=== PATIENT | male | born 1985 | race African-American/Black ===

== ENCOUNTER 2018-10-07 07:57 | Emergency (ER) | payer OTHER ==
[~2018-10-07] VITALS: Ht 185.4 cm; Wt 123.2 kg
[2018-10-07] MEDS ORDERED: LISINOPRIL-HCT1 EAC2 PO (08:08)
[2018-10-07] MEDS ORDERED: TOPROL XL25 MG PO (08:09)
[2018-10-07] MEDS ORDERED: WELLBUTRIN XL300 MG PO (08:09)
[2018-10-07 08:21] LABS: ABSOLUTE BASOPHILS 0.1 thou/uL (0.0-0.2); ABSOLUTE EOSINOPHILS 0.3 thou/uL (0.0-0.7); ABSOLUTE LYMPHOCYTES 2.1 thou/uL (0.8-5.3); ABSOLUTE MONOCYTES 0.4 thou/uL (0.0-1.2); ABSOLUTE NEUTROPHILS 3.4 thou/uL (1.6-8.1); BASOPHILS 0.8 %; EOSINOPHILS 4.3 %; HEMATOCRIT 48.1 % (42.0-52.0); HEMOGLOBIN 16.4 gm/dL (14.0-18.0); MCH 27.3 pg (26.0-34.0); MCHC 34.1 g/dL (28.0-37.0); MCV 80.1 fL (80.0-100.0); MONOCYTES 5.8 %; MPV 8.8 fl. (7.2-11.1); NUCLEATED RBCS 0 /100WBC; PLATELET COUNT* 229 thou/uL (150-400); POLYS 55.1 %; RDW-CV 13.9 % (10.5-14.5); WBC 6.2 thou/uL (4.0-11.0)
[2018-10-07 08:31] LABS: ANION GAP 7 mmol/L (7-16); BUN 16 mg/dL (7-18); CALCIUM 8.7 mg/dL (8.5-10.1); CHLORIDE 104 mmol/L (98-107); CO2 27 mmol/L (21-32); CREATININE 1.4 mg/dL (0.6-1.3); GLUCOSE 87 mg/dL (70-99); POTASSIUM 3.7 mmol/L (3.5-5.1); SODIUM 138 mmol/L (136-145)
[2018-10-07 08:34] LABS: APTT 21.3 Seconds (25.0-31.3); PROTIME 10.4 Seconds (9.20-11.50)
[2018-10-07 08:56] LABS: ALBUMIN 3.5 g/dL (3.4-5.0); ALKALINE PHOSPHATASE 50 U/L (46-116); CK-MB MASS 0.8 ng/mL (<0.5-3.6); LIPASE 165 U/L (73-393); MAGNESIUM 1.9 mg/dL (1.8-2.4); NT-PRO BRAIN NAT PEPTIDE 20 pg/mL (<300); SGOT 18 U/L (15-37); SGPT 31 U/L (30-65); TOTAL BILIRUBIN 0.4 mg/dL (<0.1-1.0); TOTAL PROTEIN 7.5 g/dL (6.4-8.2)
[2018-10-07 09:11] LABS: TROPONIN-I LEVEL <0.06 ng/mL (<0.06)
[2018-10-07 10:08] VITALS: BP 138/96
--- NOTE | 2018-10-08 10:05 | EKG ---
[place] [address] ELECTROCARDIOGRAM REPORT Name: PARMJITALIFE Room: [facility] CAMPUSErlin#: [id number] Admission: 10/07/18 Attend Phys: Discharge: 10/07/18 Date of : 81 Report #: [id number] THIS REPORT FOR: //name// [facility] ED Test Date: 2018-10-07 Test Time: 08:02:47 Pat Name: ALFIE PARNELL Department: Room: Gender: M [employer]: NAM : 1985 Requested By: Antonio Jang Order Number: [id number] MD: Panfilo Mehta Measurements Intervals [place] Rate: 90 P: 55 KS: 178 QRS: 55 QRSD: 86 T: 27 QT: 353 QTc: 432 Interpretive Statements Sinus rhythm Probable anteroseptal infarct, old No previous ECG available for comparison Electronically Signed On 10-08-2018 10:05:37 [employer] by Panfilo Mehta [email or web address] <ELECTRONICALLY SIGNED> By: Panfilo Mehta MD, [facility] 10/08/18 1005 08 08 Panfilo Mehta MD, FACC /EPI
== END 2018-10-07 10:00 | disposition home or self-care (01) ==
LOC: M.ERS 07:57
PROVIDERS: Family Medicine
DX: R07.89 Other chest pain (principal)